=== PATIENT | female | born 1975 | race Caucasian/White ===

== ENCOUNTER 2019-12-24 11:36 | Emergency (ER) | payer BC ==
[~2019-12-24] VITALS: Ht 167.6 cm; Wt 68.0 kg
--- OUTSIDE RECORDS SUMMARY | ~2019-12-24 | XMS | Encounter Summary ---
Demographics + + + | Address | [address] | | | [place] [address] | + + + | Home Phone | | + + + | Preferred Language | Unknown | + + + | Marital Status | | + + + | Voodoo Affiliation | 1013 | + + + | Race | Unknown | + + + | Ethnic Group | Unknown | + + + Author + + + | Author | [facility] | | | and [place] | + + + | Organization | [facility] | | | and [place] | + + + | Address | Unknown | + + + | Phone | Unavailable | + + + Support + + +---------+ + | Name | Relationship | Address | Phone | + + +---------+ + | Message Detailed | ECON | Unknown | Unavailable | + + +---------+ + Care Team Providers + +------+ + | Care Cashier Credit Name | Role | Phone | + +------+ + | Nicole Sommers | PCP | | + +------+ + Encounter Details +--------+ + + + + | Date | Type | Department | Care Team | Description | +--------+ + + + + | 10/11/ | Orders Only | [facility] | Conversion | | | 2014 | | CONVERSION DEP [address] | Transaction, | | | | | [address] | Provider Unknown | | | | | [place] | [phone] | | | | | [phone] | (Fax) | | | | | [phone] | | | +--------+ + + + + Social History + +-------+ +--------+------+ | Tobacco Use | Types | Packs/Day | Years | Date | | | | | Used | | + +-------+ +--------+------+ | Never Assessed | | | | | + +-------+ +--------+------+ + + + | Sex Assigned at | Date Recorded | | | | + + + | Not on file | | + + + documented as of this encounter Plan of Treatment Not on filedocumented as of this encounter Visit Diagnoses Not on filedocumented in this encounter"
--- OUTSIDE RECORDS SUMMARY | ~2019-12-24 | XMS | Encounter Summary ---
Demographics + + + | Address | [address] | | | [place] [address] | + + + | Home Phone | | + + + | Preferred Language | Unknown | + + + | Marital Status | | + + + | Orthodoxy Affiliation | 1013 | + + + | Race | Unknown | + + + | Ethnic Group | Unknown | + + + Author + + + | Author | [facility] | | | and [place] | + + + | Organization | [facility] | | | and [place] | [...] Team Providers + +------+ + | Care Automobile Seat Cover Installer Name | Role | Phone | + +------+ + | Nicole Sommers | PCP | | + +------+ + Encounter Details +--------+ + + + + | Date | Type | Department | Care Team | Description | +--------+ + + + + | 12/11/ | Orders Only | [facility] | Lup[facility] Cao, | | | 2015 | | [facility] | [address] | | | | | [facility] | [address] | | | | | [address] | [place] [address] | | | | | [address] [place], | [phone] | | | | | [place] [address] | | | | | | [phone] | | | +--------+ + + + [...]
--- OUTSIDE RECORDS SUMMARY | ~2019-12-24 | XMS | Encounter Summary ---
Demographics + + + | Address | [address] | | | [place] [address] | + + + | Home Phone | | + + + | Preferred Language | Unknown | + + + | Marital Status | | + + + | Scientologist Affiliation | 1013 | + + + | Race | Unknown | + + + | Ethnic Group | Unknown | + + + Author + + + | Author | [facility] | | | and [place] | + + + | Organization | [facility] | | | and [place] [...] Team Providers + +------+ + | Care Broadcast Meteorologist Name | Role | Phone | + +------+ + PCP | Unavailable | + +------+ + Encounter Details +--------+ + + + + | Date | Type | Department | Care Team | Description | +--------+ + + + + | 11/06/ | Hospital | [facility] | Conversion | | | 2014 | Encounter | [facility] | Transaction, | | | | | CLINIC [address] | Provider Unknown | | | | | [address] [place], [place] | | | | | | [phone] | (Fax) | | | | | [phone] | | | +--------+ + + + [...] + + documented as of this encounter Medications at Time of Discharge + + + +---------+ + + | Medication | Sig | Dispensed | Refills | Start | End Date | | | | | | Date | | + + + +---------+ + + | fluticasone | 1 spray by Each Nare | | 0 | 10/12/19 | | | (FLONASE) 50 | route daily. | | | 15 | | | mcg/nasal spray | Indications: | | | | | | | Hayfever | | | | | + + + +---------+ + + | Multiple Vitamin | Take 1 tablet by | | 0 | 10/12/19 | | | (MULTIVITAMIN) | mouth daily. | | | 15 | | | tablet | | | | | | + + + +---------+ + + documented as of this encounter Plan of Treatment Not on filedocumented as of this encounter Procedures + +--------+ + + + | Procedure Name | Priori | Date/Time | Associated Diagnosis | Comments | | | ty | | | | + +--------+ + + + | URINALYSIS WITH | Routin | 11/06/2014 | | Results for this | | MICROSCOPIC IF | e | 8:45 AM | | procedure are in the | | INDICATED | | PDT | | results section. | + +--------+ + + + | EXTERNAL LAB: CBC | Routin | 11/06/2014 | | Results for this | | | e | 8:42 AM | | procedure are in the | | | | PDT | | results section. | + +--------+ + + + | TYPE AND SCREEN | Routin | 11/06/2014 | | Results for this | | | e | 8:42 AM | | procedure are in the | | | | PDT | | results section. | + +--------+ + + + | BASIC METABOLIC | Routin | 11/06/2014 | | Results for this | | PANEL | e | 8:42 AM | | procedure are in the | | | | PDT | | results section. | + +--------+ + + + documented in this encounter Results Urinalysis with Microscopic if Indicated (11/06/2014 8:45 AM PDT) + + + + + + | Component | Value | Ref Range | Performed | Pathologist | | | | | At | Signature | + + + + + + | Color | YELLOWComment: Testing | | EXTERNAL | | | | performed at [facility], [address] | | LAB | | | | [address], | | | | | | [place] [address] | | | | + + + + + + | Clarity | CLOUDYComment: Testing | | EXTERNAL | | | | performed at [email or web address], [address] | | LAB | | | | [address], | | | | | | [place] [address] | | | | + + + + + + | Specific | 1.016Comment: Testing | 1.002 - 1.030 | EXTERNAL | | | [place], | performed at [facility], [address] | | LAB | | | Urine | [address], | | | | | | [place] [address] | | | | + + + + + + | Leukocyte | NEGATIVEComment: | | EXTERNAL | | | Esterase, | Testing performed at | | LAB | | | Urine | [facility], [address] | | | | | | [place] | | | | | | [address] | | | | + + + + + + | Nitrite, | NEGATIVEComment: Testing | | EXTERNAL | | | Urine | performed at [facility], [address] | | LAB | | | | [address], | | | | | | [place] [address] | | | | + + + + + + | Urobilinoge | 0.2Comment: Testing | mg/dL | EXTERNAL | | | n, Urine | performed at [facility], [address] | | LAB | | | | [address], | | | | | | [place] [address] | | | | + + + + + + | Protein, | NEGATIVEComment: Testing | mg/dL | EXTERNAL | | | Urine | performed at [facility], [address] | | LAB | | | | [address], | | | | | | [place] [address] | | | | + + + + + + | pH, Urine | 6.5Comment: Testing | 5.0 - 8.0 | EXTERNAL | | | | performed at [facility], [address] | | LAB | | | | [address], | | | | | | [place] [address] | | | | + + + + + + | Blood, | NEGATIVEComment: Testing | | EXTERNAL | | | Urine | performed at [facility], [address] | | LAB | | | | [address], | | | | | | [place] [address] | | | | + + + + + + | Ketones | NEGATIVEComment: Testing | mg/dL | EXTERNAL | | | | performed at [facility], [address] | | LAB | | | | [address], | | | | | | [place] [address] | | | | + + + + + + | Bilirubin, | NEGATIVEComment: Testing | | EXTERNAL | | | Urine | performed at [facility], [address] | | LAB | | | | [address], | | | | | | [place] [address] | | | | + + + + + + | Glucose, | NEGATIVEComment: Testing | mg/dL | EXTERNAL | | | Urine | performed at [facility], [address] | | LAB | | | | [address], | | | | | | [place] [address] | | | | + + + + + + + + | Specimen | + + | Urine specimen | | (specimen) | + + + +---------+ + + | Performing | Address | City/State/Zipcode | Phone Number | | Organization | | | | + +---------+ + + | EXTERNAL LAB | | | | + +---------+ + + Type and Screen (11/06/2014 8:42 AM PDT) + + + + + + | Component | Value | Ref Range | Performed | Pathologist | | | | | At | Signature | + + + + + + | ABO Rh | A POSITIVE | | EXTERNAL | | | | | | LAB | | + + + + + + | ABO Rh | Testing performed at | | EXTERNAL | | | | [facility];[address] | | LAB | | | | [address];[place] [address] | | | | + + + + + + | Antibody | NEGATIVE | | EXTERNAL | | | Screen | | | LAB | | + + + + + + | Antibody | Testing performed at | | EXTERNAL | | | Screen | [facility];[address] | | LAB | | | | [address];[place] [address] | | | | + + + + + + + + | Specimen | + + | Blood specimen | | (specimen) | + + + +---------+ + + | Performing | Address | City/State/Zipcode | Phone Number | | Organization | | | | + +---------+ + + | EXTERNAL LAB | | | | + +---------+ + + External Lab: CBC (11/06/2014 8:42 AM PDT) + + + + + + | Component | Value | Ref Range | Performed | Pathologist | | | | | At | Signature | + + + + + + | WBC | 5.31Comment: Testing | 3.80 - 11.00 | EXTERNAL | | | | performed at [facility], [address] | [address] | LAB | | | | [address], | | | | | | [place] [address] | | | | + + + + + + | Red Blood | 4.68Comment: Testing | 3.70 - 5.10 | EXTERNAL | | | Cells | performed at [facility], [address] | M/uL | LAB | | | Counted | [address], | | | | | | [place] [address] | | | | + + + + + + | Hemoglobin | 14.2Comment: Testing | 11.3 - 15.5 | EXTERNAL | | | | performed at [facility], [address] | g/dL | LAB | | | | [address], | | | | | | [place] [address] | | | | + + + + + + | Hematocrit, | 43.1Comment: Testing | 34.0 - 46.0 % | EXTERNAL | | | POC | performed at [facility], [address] | | LAB | | | | [address], | | | | | | [place] [address] | | | | + + + + + + | MCV | 92.2Comment: Testing | 80.0 - 100.0 fl | EXTERNAL | | | | performed at [facility], [address] | | LAB | | | | [address], | | | | | | [place] [address] | | | | + + + + + + | MCH | 30.4Comment: Testing | 27.0 - 34.0 pg | EXTERNAL | | | | performed at [facility], [address] | | LAB | | | | [address], | | | | | | [place] [address] | | | | + + + + + + | MCHC | 32.9Comment: Testing | 32.0 - 35.5 | EXTERNAL | | | | performed at [facility], [address] | g/dL | LAB | | | | [address], | | | | | | [place] [address] | | | | + + + + + + | RDW-CV | 42.0Comment: Testing | 37 - 53 fl | EXTERNAL | | | | performed at [facility], [address] | | LAB | | | | [address], | | | | | | [place] [address] | | | | + + + + + + | Platelet | 251Comment: Testing | 150 - 400 K/uL | EXTERNAL | | | Count | performed at [facility], [address] | | LAB | | | Plasma | [address], | | | | | | [place] [address] | | | | + + + + + + | MPV | 9.4Comment: Testing | fl | EXTERNAL | | | | performed at [facility], [address] | | LAB | | | | [address], | | | | | | [place] [address] | | | | + + + + + + | Differentia | AUTOMATEDComment: | | EXTERNAL | | | l Type | Testing performed at | | LAB | | | | [facility], [address] | | | | | | [place] | | | | | | [address] | | | | + + + + + + | % Segmented | 61.39Comment: Testing | % | EXTERNAL | | | | performed at [facility], [address] | | LAB | | | Neutrophils | [address], | | | | | | [place] [address] | | | | + + + + + + | % | 29.17Comment: Testing | % | EXTERNAL | | | Lymphocytes | performed at [facility], [address] | | LAB | | | | [address], | | | | | | [place] [address] | | | | + + + + + + | % Monocytes | 6.94Comment: Testing | % | EXTERNAL | | | | performed at [facility], [address] | | LAB | | | [address], | | | | | | [place] [address] | | | | + + + + + + | % | 2.27Comment: Testing | % | EXTERNAL | | | Eosinophils | performed at [facility], [address] | | LAB | | | | [address], | | | | | | [place] [address] | | | | + + + + + + | % Basophils | 0.23Comment: Testing | % | EXTERNAL | | | | performed at [facility], [address] | | LAB | | | | [address], | | | | | | [place] [address] | | | | + + + + + + | Absolute | 3.26Comment: Testing | 1.90 - 7.40 | EXTERNAL | | | Segmented | performed at [facility], [address] | K/uL | LAB | | | Neutrophils | [address], | | | | | | [place] [address] | | | | + + + + + + | Absolute | 1.55Comment: Testing | 1.00 - 3.90 | EXTERNAL | | | Lymphocytes | performed at [facility], [address] | K/u[address] | LAB | | | | [address], | | | | | | [place] [address] | | | | + + + + + + | Absolute | 0.37Comment: Testing | 0.00 - 0.80 | EXTERNAL | | | Monocytes | performed at [facility], [address] | K/[address] | LAB | | | | [address], | | | | | | [place] [address] | | | | + + + + + + | Absolute | 0.12Comment: Testing | 0.00 - 0.50 | EXTERNAL | | | Eosinophils | performed at [facility], [address] | K[address] | LAB | | | | [address], | | | | | | [place] [address] | | | | + + + + + + | Absolute | 0.01Comment: Testing | 0.00 - 0.10 | EXTERNAL | | | Basophils | performed at [facility], [address] | K/uL | LAB | | | | [address], | | | | | | [place] [address] | | | | + + + + + + + + | Specimen | + + | Blood specimen | | (specimen) | + + + +---------+ + + | Performing | Address | City/State/Zipcode | Phone Number | | Organization | | | | + +---------+ + + | EXTERNAL LAB | | | | + +---------+ + + Basic Metabolic Panel (11/06/2014 8:42 AM PDT) + + + + + + | Component | Value | Ref Range | Performed | Pathologist | | | | | At | Signature | + + + + + + | Na | 138Comment: Testing | 135 - 143 | EXTERNAL | | | | performed at [facility] | mmol/L | LAB | | | | [address];[place] | | | | | | [address] | | | | + + + + + + | K | 4.0Comment: Testing | 3.5 - 4.9 | EXTERNAL | | | | performed at [facility];[address] | mmol/L | LAB | | | | [address];[place] | | | | | | [address] | | | | + + + + + + | Cl | 104Comment: Testing | 99 - 109 mmol/L | EXTERNAL | | | | performed at [facility];[address] | | LAB | | | | [address];[place] | | | | | | [address] | | | | + + + + + + | CO2 | 28Comment: Testing | 23 - 32 mmol/L | EXTERNAL | | | | performed at [facility];[address] | | LAB | | | | [address];[place] | | | | | | [address] | | | | + + + + + + | Anion Gap | 9Comment: Testing | 5 - 20 mmol/L | EXTERNAL | | | | performed at [facility];[address] | | LAB | | | | [address];[place] | | | | | | [address] | | | | + + + + + + | Glucose, | 84Comment: Testing | 65 - 99 mg/dL | EXTERNAL | | | Fasting | performed at [facility];[address] | | LAB | | | | [address];[place] | | | | | | [address] | | | | + + + + + + | BUN | 10Comment: Testing | 8 - 25 mg/dL | EXTERNAL | | | | performed at [facility];[address] | | LAB | | | | [address];[place] | | | | | | [address] | | | | + + + + + + | Creatinine | 0.68Comment: Testing | 0.50 - 1.00 | EXTERNAL | | | | performed at [facility];[address] | mg/dL | LAB | | | | [address];[place] | | | | | | [address] | | | | + + + + + + | BUN/Creatin | 15Comment: Testing | | EXTERNAL | | | ine Ratio | performed at [facility];[address] | | LAB | | | | [address];[place] | | | | | | [address] | | | | + + + + + + | Calcium | 9.0Comment: Testing | 8.5 - 10.5 | EXTERNAL | | | | performed at [facility];[address] | mg/dL | LAB | | | | [address];[place], [place] | | | | | | [address] | | | | + + + + + + | Estimated | >60Comment: GFR <60: | mL/min/1.73m2 | EXTERNAL | | | GFR | CHRONIC KIDNEY DISEASE, | | LAB | | | | IF FOUND OVER A 3 MONTH | | | | | | PERIOD.GFR <15: KIDNEY | | | | | | FAILURE.FOR | | | | | | AMERICANS, MULTIPLY THE | | | | | | CALCULATED GFR BY | | | | | | 1.210.Testing performed | | | | | | at [facility];[address] | | | | | [address];[place] [address] | | | | + + + + + + + + | Specimen | + + | Blood specimen | | (specimen) | + + + +---------+ + + | Performing | Address | City/State/Zipcode | Phone Number | | Organization | | | | + +---------+ + + | EXTERNAL LAB | | | | + +---------+ + + documented in this encounter Visit Diagnoses Not on filedocumented in this encounter"
--- OUTSIDE RECORDS SUMMARY | ~2019-12-24 | XMS | Encounter Summary ---
Demographics + + + | Address | [address] | | | [place] [address] | + + + | Home Phone | | + + + | Preferred Language | Unknown | + + + | Marital Status | | + + + | Catholic Affiliation | 1013 | + + + | Race | Unknown | + + + | Ethnic Group | Unknown | + + + Author + + + | Author | [facility] | | | and [place] | + + + | Organization | [facility] | | | and [...] Team Providers + +------+ + | Care Activity Coordinator Name | Role | Phone | + +------+ + PCP | Unavailable | + +------+ + Encounter Details +--------+ + + + + | Date | Type | Department | Care Team | Description | +--------+ + + + + | 11/08/ | Hospital | [facility] | Brendon Baueron, | Pelvic pain in | | 2015 | Encounter | [facility] | MD [address] | female; Preoperative | | | | [address] | [address], | exam for | | | | [place], [place] | [place] [address] | gynecologic surgery; | | | | [address] | [phone] | Endometriosis | | | | [phone] | | | +--------+ + + + [...] + + documented as of this encounter Discharge Summaries Fuad Bauer MD - 11/08/2014 12:14 PM PDT Discharge Summaries by Fuad Bauer MD at 11/08/14 1214 Author: Fuad Bauer MD Service: Obstetrics/Gynecology Author Type: Physician Filed: 11/12/14 1044 Date of Service: 11/08/14 1214 Status: Signed Automatic Glove Former: Fuad Bauer MD (Physician) [facility] Service: Obstetrics & Gynecology Brief Post-op Discharge Note DISCHARGE DIAGNOSES: Active Problems: * No active hospital problems. * Resolved Problems: * No resolved hospital problems. * Procedures: Procedure(s) with comments: ROBOTIC ASSISTED LAPAROSCOPIC LYSIS OF ADHESIONS ROBOTIC ASSISTED LAPAROSCOPIC SALPINGO-OOPHORECTOMY - treatment of endometriosis This patient was transferred to the recovery area post-operatively and has experienced no d ifficulties at the time of my assessment. The patient is anticipated to continue to meet di scharge criteria per protocol as assessed by nursing and may be discharged at that time with designated caregiver. Disposition: Home Condition: Good Code Status: Full Code No discharge procedures on file. Follow up: Nicole Sommers NP [address] [place] [id number] Fuad Bauer M.D [address] [address] Medication List START taking these medications docusate sodium 100 MG capsule QTY: 60 capsule Refills: 1 Commonly known as: COLACE Take 1 capsule by mouth 2 (two) times daily as needed for Constipation. ibuprofen 800 MG tablet QTY: 90 tablet Refills: 1 Commonly known as: MOTRIN Take 1 tablet by mouth every 8 (eight) hours as needed for Pain. CHANGE how you take these medications oxyCODONE-acetaminophen 5-325 MG per tablet QTY: 40 tablet Refills: 0 Commonly known as: ROXICET Take 1-2 tablets by mouth every 4 (four) hours as needed for Pain. What changed: how much to take CONTINUE taking these medications FETZIMA 120 MG Cp24 Refills: 0 Generic drug: Levomilnacipran HCl ER fluticasone 50 MCG/ACT nasal Refills: 0 Commonly known as: FLONASE multivitamin tablet Refills: 0 Where to Get Your Medications These are the prescriptions that you need to product picker. You may get the following medications from any pharmacy - docusate sodium 100 MG capsule - ibuprofen 800 MG tablet - oxyCODONE-acetaminophen 5-325 MG per tablet Fuad Bauer MD 11/08/2014 documented in thi s encounter Medications at Time of Discharge + [...] + + documented as of this encounter H&P Notes Fuad Bauer MD - 11/08/2014 7:17 AM PDT Interval H&P Note by Fuad Bauer MD at 11/08/14716 Author: Fuad Bauer MD Service: Obstetrics/Gynecology Author Type: Physician Filed: 11/08/14716 Date of Service: 11/08/14716 Status: Signed Automatic Glove Former: Fuad Bauer MD (Physician) [facility] Service: Obstetrics & Gynecology Pre-Operative History & Physical Interval Update There have been no significant clinical changes since the completion of the above H&P. Fuad Bauer MD 11/08/2014 *CORE MEASURES REMINDER: If the patient has a known or suspected infection prior to surger y, please add diagnosis to the problem list (consider: Infection 136.9). Source Note Author: Fuad Bauer MD Service: (none) Author Type: Physician Filed: 11/06/14 0858 Date of Service: 11/06/1457 Status: Signed Automatic Glove Former: Fuad Bauer MD (Physician) [facility] Service: Obstetrics & Gynecology History and Physical Note Subjective: Patient ID: Celina Crespo is a 39 y.o. female presents for a pre-op examination. She is schedu led to have a Robotic Assisted Laparoscopic Oophorectomy on 11/08/[address] Bauer due t o pelvic pain and endometriosis. Initial consult on 10/11/14 with Lupillo Cao available below. Pt is s/p hysterectomy in 08 09 due to cervical cancer, only R ovary remains. She has a known history of significant endo metriosis, thus the robotic assist with the laparoscopy. If significant adhesions or endome triosis is encountered this will be the best option to treat adequately. HPI Celina is , x2. Stay-- Out Patient Preforming Dept :[facility] Surgery : Robotic assisted laparoscopic oopherectomy Provider : Juancarlos [place] Operator Surgeon : None Length of the surgery : 120 minutes Pre op Date : 11/06/2014 Surgery date 11/08/2014 Post op Date 12/11/2014 PT has apt at 0830 today with pre-admission services. The following portions of the patient's history were reviewed and updated as appropriate: S he has a past medical history of Depression; Cancer (07/2002); and Endometriosis. She does not have any pertinent problems on file. She has past surgical history that includes Tubal ligation; Dilation and curettage of uter us; Tonsillectomy; Breast surgery (Bilateral); Hysterectomy (07/2002); and Oophorectomy (Righ t, 07/2002). Her family history includes Diabetes type II in her father; High cholesterol in her father; Hypertension in her father. There is no history of Diabetes type I or Cancer. She reports that she has never smoked. She has never used smokeless tobacco. She reports t hat she drinks about 1.0 oz of alcohol per week. She reports that she does not use illicit d rugs. She has a current medication list which includes the following prescription(s): fluticasone , levomilnacipran hcl er, and multivitamin. She is allergic to tetracycline and erythromycin.. Review of Systems Constitutional: Negative for fever and chills. Respiratory: Negative for chest tightness, shortness of breath and wheezing. Cardiovascular: Negative for chest pain, palpitations and leg swelling. Gastrointestinal: Negative for nausea, vomiting, abdominal pain, diarrhea, constipation and abdominal distention. Genitourinary: Positive for pelvic pain and dyspareunia. Negative for dysuria, urgency, saji quency, vaginal bleeding, vaginal discharge, difficulty urinating, vaginal pain and menstrua l problem. Neurological: Negative for dizziness, light-headedness and headaches. Psychiatric/Behavioral: Negative for dysphoric mood and agitation. The patient is not nervo us/anxious. She does take medication for the treatment of depression Objective: Physical Exam Constitutional: She is oriented to person, place, and time. She appears well-developed and well-nourished. No distress. HENT: Head: Normocephalic and atraumatic. Eyes: EOM are normal. Pupils are equal, round, and reactive to light. Neck: Neck supple. No thyromegaly present. Cardiovascular: Normal rate, regular rhythm and normal heart sounds. No murmur heard. Pulmonary/Chest: Effort normal and breath sounds normal. No respiratory distress. She has n o wheezes. Abdominal: Soft. Bowel sounds are normal. She exhibits no distension and no mass. There is no tenderness. Genitourinary: Vagina normal. Bimanual with tenderness to palpation at the vaginal apex and adnexa. Lymphadenopathy: She has no cervical adenopathy. Neurological: She is alert and oriented to person, place, and time. No cranial nerve defici t. Skin: Skin is warm and dry. She is not diaphoretic. Psychiatric: She has a normal mood and affect. Her behavior is normal. Thought content norm al. Vitals reviewed. Office visit on 10/11/2014 HPI Pelvic Pain The patient's primary symptoms include pelvic pain. She complains of right lower quadrant pain. She states that pain occurs daily and is worse ember with sneezing, or when bowel or bladder is full. She has been fairly pain free before the past 8 weeks, but would have mild ache on the righ t, especially around ovulation time. Also has dyspareunia on the right. She is taking 800 mg of Ibuprofen for medication to manage pain. She has missed work due to severity of pain. She notes that recent lab work for estrogen and progesterone have been very low. Physical exam: Genitourinary: Vagina normal. There is no rash, tenderness, no lesion or injury on the righ t labia. There is no rash, tenderness, no lesion or injury on the left labia. Right adnexum displays tenderness. Right adnexum displays no mass and no fullness. Left adnexum displays n o mass, no tenderness and no fullness. No erythema, tenderness or bleeding in the vagina. No signs of injury around the vagina. No vaginal discharge found. Tenderness right adnexa. Uterus and cervix surgically absent. Assessment and plan: Endometriosis/Pelvic Pain in Female: - Discussed medical management with control pills for suppression vs laparoscopy and oophorectomy. Pt is very desirous of definitive management of this issue with removal of the remaining ovary. - Dr. Bauer was brought into the exam room to consulted with patient. Discussed conserva tive management prior to proceeding with robotic laparoscopy. Reviewed excision of right fal lopian tube and ovary including the need for hormone replacement therapy. She remained certa in that she wants surgical management. Case request generated by Dr. Bauer. Assessment and Plan: Visit Diagnoses and Associated Orders: Endometriosis Pelvic pain in female Preoperative exam for gynecologic surgery She has a known history of significant endometriosis, thus the robotic assist with the lapa roscopy. If significant adhesions or endometriosis is encountered this will be the best opt ion to treat adequately. Pre op today. She is scheduled for Robotic Assisted Laparoscopic right sided Oophorectomy ( both if present), with excision of endometriosis if present, on 11/08/2014. Procedure proces s and benefits were discussed. Nature of the procedure(s), risks to include, but not limited to, bleeding, transfusion risks, infection, injury to other organs or structures requiring further surgery, either at the time of this procedure or a future date, for repair or remov al of injured structure, failure to relieve symptoms, anesthesia risks were all discussed an d explained. She voices understanding and wishes to proceed. All questions answered. Consen t signed. Post-surgery precautions reviewed. Follow up in 6 weeks, This visit was scribed by OCTAVIA Hawk for Fuad Bauer MD I have personally reviewed the above History and Physical, amended as necessary, discussed the procedure with the patient, and carefully reviewed the consent form prior to signing. Fuad Bauer M.D. Fuad Bauer MD 11/06/2014 izemore, Fuad Groves MD - 11/06/2014 8:57 AM PDT H&P (View-Only) by Fuad Bauer MD at 11/06/14 0857 Author: Fuad Bauer MD Service: (none) Author Type: Physician Filed: 11/06/14 0858 Date of Service: 11/06/14856 Status: Signed Automatic Glove Former: Fuad Bauer MD (Physician) [facility] Service: Obstetrics & Gynecology History and Physical Note Subjective: Patient ID: Celina Crespo is a 39 y.o. female presents for a pre-op examination. She is schedu led to have a Robotic Assisted Laparoscopic Oophorectomy on 11/08/[address] Bauer due t o pelvic pain and endometriosis. Initial consult on 10/11/14 with Lupillo Cao available below. Pt is s/p hysterectomy in 08 09 due to cervical cancer, only R ovary remains. She has a known history of significant endo metriosis, thus the robotic assist with the laparoscopy. If significant adhesions or endome triosis is encountered this will be the best option to treat adequately. HPI Celina is , x2. Stay-- Out Patient Preforming Dept :[facility] Surgery : Robotic assisted laparoscopic oopherectomy Provider : Juancarlos [place] Operator Surgeon : Nito Length of the surgery : 120 minutes Pre op Date : 11/06/2014 Surgery date 11/08/2014 Post op Date 12/11/2014 PT has apt at 0830 today with pre-admission services. The following portions of the patient's history were reviewed and updated as appropriate: S he has a past medical history of Depression; Cancer (07/2002); and Endometriosis. She does not have any pertinent problems on file. She has past surgical history that includes Tubal ligation; Dilation and curettage of uter us; Tonsillectomy; Breast surgery (Bilateral); Hysterectomy (07/2002); and Oophorectomy (Ellah nain, 07/2002). Her family history includes Diabetes type II in her father; High cholesterol in her father; Hypertension in her father. There is no history of Diabetes type I or Cancer. She reports that she has never smoked. She has never used smokeless tobacco. She reports t hat she drinks about 1.0 oz of alcohol per week. She reports that she does not use illicit d rugs. She has a current medication list which includes the following prescription(s): fluticasone , levomilnacipran hcl er, and multivitamin. She is allergic to tetracycline and erythromycin.. Review of Systems Constitutional: Negative for fever and chills. Respiratory: Negative for chest tightness, shortness of breath and wheezing. Cardiovascular: Negative for chest pain, palpitations and leg swelling. Gastrointestinal: Negative for nausea, vomiting, abdominal pain, diarrhea, constipation and abdominal distention. Genitourinary: Positive for pelvic pain and dyspareunia. Negative for dysuria, urgency, saji quency, vaginal bleeding, vaginal discharge, difficulty urinating, vaginal pain and menstrua l problem. Neurological: Negative for dizziness, light-headedness and headaches. Psychiatric/Behavioral: Negative for dysphoric mood and agitation. The patient is not nervo us/anxious. She does take medication for the treatment of depression Objective: Physical Exam Constitutional: She is oriented to person, place, and time. She appears well-developed and well-nourished. No distress. HENT: Head: Normocephalic and atraumatic. Eyes: EOM are normal. Pupils are equal, round, and reactive to light. Neck: Neck supple. No thyromegaly present. Cardiovascular: Normal rate, regular rhythm and normal heart sounds. No murmur heard. Pulmonary/Chest: Effort normal and breath sounds normal. No respiratory distress. She has n o wheezes. Abdominal: Soft. Bowel sounds are normal. She exhibits no distension and no mass. There is no tenderness. Genitourinary: Vagina normal. Bimanual with tenderness to palpation at the vaginal apex and adnexa. Lymphadenopathy: She has no cervical adenopathy. Neurological: She is alert and oriented to person, place, and time. No cranial nerve defici t. Skin: Skin is warm and dry. She is not diaphoretic. Psychiatric: She has a normal mood and affect. Her behavior is normal. Thought content norm al. Vitals reviewed. Office visit on 10/11/2014 HPI Pelvic Pain The patient's primary symptoms include pelvic pain. She complains of right lower quadrant pain. She states that pain occurs daily and is worse ember with sneezing, or when bowel or bladder is full. She has been fairly pain free before the past 8 weeks, but would have mild ache on the righ t, especially around ovulation time. Also has dyspareunia on the right. She is taking 800 mg of Ibuprofen for medication to manage pain. She has missed work due to severity of pain. She notes that recent lab work for estrogen and progesterone have been very low. Physical exam: Genitourinary: Vagina normal. There is no rash, tenderness, no lesion or injury on the righ t labia. There is no rash, tenderness, no lesion or injury on the left labia. Right adnexum displays tenderness. Right adnexum displays no mass and no fullness. Left adnexum displays n o mass, no tenderness and no fullness. No erythema, tenderness or bleeding in the vagina. No signs of injury around the vagina. No vaginal discharge found. Tenderness right adnexa. Uterus and cervix surgically absent. Assessment and plan: Endometriosis/Pelvic Pain in Female: - Discussed medical management with control pills for suppression vs laparoscopy and oophorectomy. Pt is very desirous of definitive management of this issue with removal of the remaining ovary. - Dr. Bauer was brought into the exam room to consulted with patient. Discussed conserva tive management prior to proceeding with robotic laparoscopy. Reviewed excision of right fal lopian tube and ovary including the need for hormone replacement therapy. She remained certa in that she wants surgical management. Case request generated by Dr. Bauer. Assessment and Plan: Visit Diagnoses and Associated Orders: Endometriosis Pelvic pain in female Preoperative exam for gynecologic surgery She has a known history of significant endometriosis, thus the robotic assist with the lapa roscopy. If significant adhesions or endometriosis is encountered this will be the best opt ion to treat adequately. Pre op today. She is scheduled for Robotic Assisted Laparoscopic right sided Oophorectomy ( both if present), with excision of endometriosis if present, on 11/08/2014. Procedure proces s and benefits were discussed. Nature of the procedure(s), risks to include, but not limited to, bleeding, transfusion risks, infection, injury to other organs or structures requiring further surgery, either at the time of this procedure or a future date, for repair or remov al of injured structure, failure to relieve symptoms, anesthesia risks were all discussed an d explained. She voices understanding and wishes to proceed. All questions answered. Consen t signed. Post-surgery precautions reviewed. Follow up in 6 weeks, This visit was scribed by OCTAVIA Hawk for Fuad Bauer MD I have personally reviewed the above History and Physical, amended as necessary, discussed the procedure with the patient, and carefully reviewed the consent form prior to signing. Fuad Bauer M.D. Fuad Bauer MD 11/06/2014 documented in thi s encounter Miscellaneous Notes Op Note - Fuad Bauer MD - 11/08/2014 12:14 PM PDT Op Note by Fuad Bauer MD at 11/08/14 6031 Author: Fuad Bauer MD Service: Obstetrics/Gynecology Author Type: Physician Filed: 11/12/14 4123 Date of Service: 11/08/14 1214 Status: Signed Automatic Glove Former: Fuad Bauer MD (Physician) Related Notes: Original Note by Fuad Bauer MD (Physician) filed at 11/08/14 6565 [facility] Service: Obstetrics & Gynecology Operative Note Pre-operative Diagnosis: Pelvic pain, dyspareunia, history of endometriosis Post-operative Diagnosis: Same, with minimal endometriosis, mild adhesions Procedure(s): Robotic assisted RSO, cautery of minimal endometriosis Surgeon: Fuad Bauer MD [place] Operator(s): Violet Ross Anesthesia: General endotrachial anesthesia Estimated Blood Loss: Less Than 100 ml Other: IV Fluids: 1000 ml ml Drains: freeman, adequate clear ml Urine Output: adequate clear ml Implants: none Specimens: right tube and ovary, photodocumentation see anesthesia Indications: See pre-operative history and physical. Findings: Right ovary, tube and round ligament with staple line, some adhesions to anteri or abd wall and bladder peritoneum. Minimal endometriosis on the left US ligament and cul de sac. Adhesions from the cul de sac to the posterior vaginal cuff. Complications: None apparant Description of Procedure: taken to the operating room and placed on the table in the supin e position. Positioning and prepping for robotic surgery performed with testing of 21-degree Trendelenburg. General anesthesia administered. Sterilely prepped and draped in the usual f ashion. Three trocars placed, initially a 5 mm umbilical and then two 8 mm robotic ports lat eral and inferior to this. The 5 mm laparoscopic trocar with 5 mm scope was inserted umbilic ally, proper location verified visually, pneumoperitoneum created. The other 8 mm robotic po rts were inserted under direct visualization. Liposomal bupivacaine employed as local anesth esia at all sites. The 5 mm port was then replaced with a 10 mm port while visualizing throu gh one of the lateral ports with a 5 mm scope. The robot was docked after moving her to a 21 -degree Trendelenburg tilt. Once the instruments were loaded, PK in my left hand and scissor s in my right (monopolar), went ahead and broke scrub and went to the console. Findings as above. Endometriosis in the cul-de-sac and left uterosacral ligament cauterized . Adhesion taken down in the cul-de-sac. Adhesions to the right adnexa and the lateral parie yulisa peritoneum and bladder peritoneum were taken down sharply and with monopolar cautery. Th e infundibular ligament was taken down with the PK and scissors. The ureter was easily ident ified and was followed throughout its course and out of the way during the entire procedure. Once the adnexa was free and hemostasis was obtained, went ahead and rescrubbed. The robot was then undocked. Through the 10/12 mm umbilical port an Endobag was inserted and the speci men placed through this and brought out through the umbilical incision with a little bit of work. Hemostasis was assured. Specimen was intact. I went ahead and used the Nash fascia l closure device, and the umbilical fascia was closed with 0 Vicryl suture tied without defe ct, palpated. Pneumoperitoneum resolved. All instruments were removed. Incisions closed with subcuticular 4-0 Monocryl and Dermabond over the top. Sponge stick re moved from the vagina. Freeman catheter was discontinued postoperatively as plan is for dischaudrey odom home today. She was then awakened from general anesthesia, extubated, and taken to the recovery room in good condition. ESTIMATED BLOOD LOSS Minimal. COMPLICATIONS No apparent complications. DISPOSITION I anticipate discharge per same day surgery protocol today. Condition: Stable Fuad Bauer MD 11/08/2014 documented in thi s encounter Plan of Treatment Not on filedocumented as of this encounter Procedures + +--------+ + + + | Procedure Name | Priori | Date/Time | Associated Diagnosis | Comments | | | ty | | | | + +--------+ + + + | TISSUE REQUEST FOR | Routin | 11/09/2014 | | Results for this | | PATHOLOGY (NON-ORD) | e | 12:00 AM | | procedure are in the | | | | PDT | | results section. | + +--------+ + + + | XR ABDOMEN AP | Routin | 11/08/2014 | | Results for this | | | e | 12:24 PM | | procedure are in the | | | | PDT | | results section. | + +--------+ + + + documented in this encounter Results Tissue Request For Pathology (11/09/2014 12:00 AM PDT) + + | Specimen | + + | Soft tissue sample | | (specimen) | + + + + + | Narrative | Performed At | + + + | SPECIMEN(S): A RT. OVARY AND FALLOPIAN TUBE SPECIMEN SOURCE: A. | EXTERNAL LAB | | RT. OVARY AND FALLOPIAN TUBE CLINICAL HISTORY: 11/08/2014 at 1140 | | | H. Pelvic pain. FINAL PATHOLOGIC DIAGNOSIS: Right ovary and | | | fallopian tube, right salpingo-oophorectomy: -Right ovary with | | | corpora albicantia, surface epithelial inclusion cysts, regressing | | | corpus luteum, hemorrhagic corpus luteum and cystic follicles. | | | -Unremarkable fallopian tube. GROSS DESCRIPTION: The specimen is | | | received in formalin labeled with the patient's name and designated | | | "right ovary and fallopian tube" and consists of a tubal ovarian | | | complex with a fallopian tube that is received in three segments. | | | The first two segments are attached via a violaceous serosa and | | | measure 2.5 x 0.6 cm and 4.5 x 0.9 cm. The third segment is a 2.5 x | | | 2.4 x 0.8 cm portion of delicate fimbriae. The serosal surfaces are | | | violaceous and smooth. Cut sections reveal a lumen that ranges from | | | 0.1 cm up to 0.3 cm. Separate within the container is a 3.8 x 2.5 x | | | 2.0 cm ovary. The external surface is jordan and cerebriform. | | | Serially sectioning reveals an orange-jodran variegated ovarian | | | parenchyma with one hemorrhagic corpus luteum and multiple clear | | | watery fluid-filled cystic structures. No papillary excrescences | | | are grossly identified. Ethylene Plant Operator sections are submitted in | | | cassettes (A1-A2). FM MICROSCOPIC EXAMINATION: Histologic sections | | | of all submitted blocks are examined by light microscopy. These | | | findings, together with the gross examination, support the pathologic | | | diagnosis. PERFORMING LABORATORY: Professional interpretation and | | | technical preparation was performed by [facility] | | | [address] [place] [address] | | | (Service Team Leader: Royce Segal M.D.; OMAR#: [id number]). | | | Diagnostician: Tristian Vigil MD Pathologist Electronically Signed | | | 11/10/2014 | | + + + + +---------+ + + | Performing | Address | City/State/Zipcode | Phone Number | | Organization | | | | + +---------+ + + | EXTERNAL LAB | | | | + +---------+ + + XR Abdomen AP (11/08/2014 12:24 PM PDT) + + | Specimen | + + | | + + + + + | Impressions | Performed At | + + + | FINDINGS/ IMPRESSION: No metallic foreign body within the | | | abdomen or pelvis. No acute osseous abnormality. Above average | | | stool burden within the colon. | | + + + + + + | Narrative | Performed At | + + + | [facility] 1975 XR ABDOMEN 1 VIEW 11/08/2014 12:24 PM | | | INDICATION: Discrepant count in the operating room. COMPARISON: | | | None TECHNIQUE: Abdominal series, single view | | + + + + + | Procedure Note | + + | Teto Lundy Conversion - 02/04/2019 8:22 AM PDT [facility] | | 1975 | | XR ABDOMEN 1 VIEW | | 11/08/2014 12:24 PM | | | | INDICATION: Discrepant count in the operating room. | | | | COMPARISON: None | | | | TECHNIQUE: Abdominal series, single view | | | | IMPRESSION: | | FINDINGS/ IMPRESSION: | | | | No metallic foreign body within the abdomen or pelvis. | | | | No acute osseous abnormality. | | | | Above average stool burden within the colon. | | | | | | | + + documented in this encounter Visit Diagnoses + + | Diagnosis | + + | Pelvic pain in female Unspecified symptom associated with female genital organs | + + | Preoperative exam for gynecologic surgery Preoperative examination, unspecified | + + | Endometriosis Endometriosis, site unspecified | + + documented in this encounter
--- OUTSIDE RECORDS SUMMARY | ~2019-12-24 | XMS | Clinical Summary ---
Demographics + + + | Address | [address] | | | [place] [address] | + + + | Home Phone | | + + + | Preferred Language | Unknown | + + + | Marital Status | | + + + | Anglican Affiliation | 1013 | + + + | Race | Unknown | + + + | Ethnic Group | Unknown | + + + Author + + + | Author | [facility] | | | and [place] | + + + | Organization | [facility] | | | and [place] [...] Team Providers + +------+ + | Care Hand Tapper Name | Role | Phone | + +------+ + | Nicole Sommers | PCP | | + +------+ + Allergies + + + + + + | Active Allergy | Reactions | Severity | Noted | Comments | | | | | Date | | + + + + + + | Erythromycin | Other (See Comments) | Medium | 10/12/19 | Heartburn | | | | | 15 | | + + + + + + | Tetracycline | Hives | High | 10/12/19 | | | | | | 15 | | + + + + + + Medications + + + +---------+------+------+-------+ | Medication | Sig | Dispensed | Refills | Star | End | Statu | | | | | | t | Date | s | | | | | | Date | | | + + + +---------+------+------+-------+ | Multiple Vitamin | Take 1 tablet by | | 0 | 04/2 | | Activ | | (MULTIVITAMIN) | mouth daily. | | | 08/11 | | e | | tablet | | | | 15 | | | + + + +---------+------+------+-------+ | fluticasone | 1 spray by Each Nare | | 0 | 04/2 | | Activ | | (FLONASE) 50 | route daily. | | | 2/20 | | e | | mcg/nasal spray | Indications: | | | 15 | | | | | Hayfever | | | | | | + + + +---------+------+------+-------+ | fluconazole | Take 1 tablet by | 2 | 0 | 06/2 | | Activ | | (DIFLUCAN) 150 mg | mouth stat then | tablet | | 2/20 | | e | | tablet | repeat in 4 days as | | | 16 | | | | | needed | | | | | | + + + +---------+------+------+-------+ | estradiol | TAKE ONE TABLET BY | 30 | 0 | 06/2 | | Activ | | (ESTRACE) 2 MG | MOUTH DAILY | tablet | | /20 | | e | | tablet | | | | 17 | | | + + + +---------+------+------+-------+ Active Problems + + + | Problem | Noted Date | + + + | Hormone replacement therapy | 12/12/2015 | + + + | S/P total hysterectomy and BSO (bilateral salpingo-oophorectomy) | 12/12/2015 | + + + | Surgical menopause | 12/11/2014 | + + + | Pelvic pain in female | 10/11/2014 | + + + | Endometriosis | 10/11/2014 | + + + Family History + + +------+ + | Medical History | Relation | Name | Comments | + + +------+ + | Diabetes, NIDDM | Father | | | + + +------+ + | High cholesterol | Father | | | + + +------+ + | Hypertension | Father | | | + + +------+ + | Cancer | Neg Hx | | | + + +------+ + | Diabetes, IDDM | Neg Hx | | | + + +------+ + + +------+--------+ + | Relation | Name | Status | Comments | + +------+--------+ + | Father | | | | + +------+--------+ + Social History + +-------+ +--------+------+ | Tobacco Use | Types | Packs/Day | Years | Date | | | | | Used | | + +-------+ +--------+------+ | Never Smoker | | | | | + +-------+ +--------+------+ + + + | Sex Assigned at | Date Recorded | | | | + + + | Not on file | | + + + Last Filed Vital Signs + + + + + | Vital Sign | Reading | Time Taken | Comments | + + + + + | Blood Pressure | 106/54 | 12/12/2015 2:35 PM | | | | | PDT | | + + + + + | Pulse | - | - | | + + + + + | Temperature | - | - | | + + + + + | Respiratory Rate | - | - | | + + + + + | Oxygen Saturation | - | - | | + + + + + | Inhaled Oxygen | - | - | | | Concentration | | | | + + + + + | Weight | 65 kg (143 lb 6.1 | 12/12/2015 2:35 PM | | | | oz) | PDT | | + + + + + | Height | 167.6 cm (5' 6") | 12/12/2015 2:35 PM | | | | | PDT | | + + + + + | Body Mass Index | 23.14 | 12/12/2015 2:35 PM | | | | | PDT | | + + + + + Plan of Treatment + + +-------+ + | Health Maintenance | Due Date | Last | Comments | | | | Done | | + + +-------+ + | Vaccine: | | | | | Dtap/Tdap/Td (1 - | 5 | | | | Tdap) | | | | + + +-------+ + | Cervical Cancer | | | | | Screening (Pap) | 6 | | | + + +-------+ + | Vaccine: Influenza | | | | | (#1) | 0 | | | + + +-------+ + Results Not on filefrom Last 3 Months
--- OUTSIDE RECORDS SUMMARY | ~2019-12-24 | XMS | Encounter Summary ---
Demographics + + + | Address | [address] | | | [place] [address] | + + + | Home Phone | | + + + | Preferred Language | Unknown | + + + | Marital Status | | + + + | Tenriism Affiliation | 1013 | + + + | Race | Unknown | + + + | Ethnic Group | Unknown | + + + Author + + + | Author | [facility] | | | and [place] | + + + | Organization | [facility] | | | and [place] [...] Team Providers + +------+ + | Care Talent Acquisition Sourcer Name | Role | Phone | + +------+ + | Nicole Sommers | PCP | | + +------+ + Encounter Details +--------+ + + + + | Date | Type | Department | Care Team | Description | +--------+ + + + + | 12/18/ | Orders Only | [facility] | Lupillo Cao, | | | 2016 | | [facility]OCIATED | [address] | | | | | [facility] | [address] | | | | | [address] | [place] [address] | | | | | [address] [place], | [phone] | | | | | [place] [address] | | | | | | [phone] | | | +--------+ + + + [...]
--- OUTSIDE RECORDS SUMMARY | ~2019-12-24 | XMS | Encounter Summary ---
Demographics + + + | Address | [address] | | | [place] [address] | + + + | Home Phone | | + + + | Preferred Language | Unknown | + + + | Marital Status | | + + + | Spiritism Affiliation | 1013 | + + + | Race | Unknown | + + + | Ethnic Group | Unknown | + + + Author + + + | Author | [facility] | | | and [place] | + + + | Organization | [facility] | | | and [place] [...] Team Providers + +------+ + | Care Banbury Machine Operator Name | Role | Phone | + +------+ + | Nicole Sommers | PCP | | + +------+ + Encounter Details +--------+ + + + + | Date | Type | Department | Care Team | Description | +--------+ + + + + | 01/07/ | Orders Only | [facility] | Lupillo Coa, | | | 2017 | | ASSOCIATED | [address] | | | | | [facility] | [address] | | | | | [address] | [place] [address] | | | | | [address], | [phone] | | | | | [place] [address] | | | | | | [phone] | | | +--------+ + + + [...]
[2019-12-24] MEDS ORDERED: PERCOCET 5-3251 EACH PO (12:27)
== END 2019-12-24 12:38 | disposition home or self-care (01) ==
LOC: ED 11:36
DX: S93.401A Sprain of unspecified ligament of right ankle, initial encounter (principal); W11.XXXA Fall on and from ladder, initial encounter
CPT/HCPCS: 73610; 99283-25